=== PATIENT | female | born 1970 | race African-American/Black ===

== ENCOUNTER 2019-11-15 17:10 | Emergency (ER) | payer BC, OTHER ==
[~2019-11-15] VITALS: Ht 167.6 cm; Wt 113.4 kg
[~2019-11-15 17:10] MED LIST: AUGMENTIN 875875 MG PO; COLACE 100 MG100 MG PO; DYAZIDE 37.5-21 EACH PO; HYDROCODONE-AP1 EA12 PO; IBUPROFEN 800800 M1 PO; KEFLEX500 MG PO; LEVAQUIN 500 M500 MG PO; LORTAB 5 MG/5001 TA1 PO; MOBIC7.5 MG PO; NORCO 5-325 TA1 EACH PO; OMEGA-3 FISH1000 MG PO; PERCOCET 7.5-31 EACH PO; PHENERGAN 25 MG25 M1 PO; PREMARIN; PROTONIX40 M2 PO; TOPROL XL100 MG PO; VESICARE 5 MG TA5 MG PO; XYZAL5 MG PO
[2019-11-15 17:38] VITALS: BP 161/87
[2019-11-15] MEDS ORDERED: MOBIC7.5 MG PO (18:59)
[2019-11-15] MEDS ORDERED: NORCO 10-325 T1 EACH PO (19:00)
== END 2019-11-15 20:00 | disposition home or self-care (01) ==
LOC: ER 17:10
DX: S83.91XA Sprain of unspecified site of right knee, initial encounter (principal); I10 Essential (primary) hypertension; Z90.710 Acquired absence of both cervix and uterus; Z79.1 Long term (current) use of non-steroidal anti-inflammatories (NSAID); Z79.899 Other long term (current) drug therapy; Z88.5 Allergy status to narcotic agent; Z91.040 Latex allergy status; X50.1XXA Overexertion from prolonged static or awkward postures, initial encounter; Y93.89 Activity, other specified; Y92.89 Other specified places as the place of occurrence of the external cause; Y99.8 Other external cause status